=== PATIENT | male | born 1950 | race Caucasian/White ===

== ENCOUNTER 2018-01-27 13:55 | Emergency (ER) | payer OTHER, SELFPAY ==
[2018-01-27 14:06] VITALS: BP 129/85; PULSE 84; RESP 20; TEMP 36.6; O2SAT 96; BMI 27.1
[2018-01-27 14:16] VITALS: PULSE 87; RESP 20; O2SAT 93
[2018-01-27 14:21] VITALS: O2SAT 94
--- NOTE | 2018-01-27 14:21 | RAD_ITS ---
STUDY: X-RAY CHEST REASON FOR EXAM: Male, 67 years old. Dyspnea. Rales. TECHNIQUE: AP and lateral views of the chest. COMPARISON: None. FINDINGS: EKG electrodes are seen. There is evidence of bilateral pleural effusions right worse than left with CHF. Bibasilar atelectasis. RAD/Chest PA and Lateral IMPRESSION: CHF. Bilateral pleural effusions with underlying bibasilar atelectasis. Electronically Signed: Shahid Martniez MD at 15:32 EST Tel [phone], Service support ,
--- NOTE | 2018-01-27 14:21 | EKG12_ITS ---
Test Reason : CP Blood Pressure : / mmHG Vent. Rate : 085 BPM Atrial Rate : 085 BPM P-R Int : 132 ms QRS Dur : 094 ms QT Int : 358 ms P-R-T Axes : 058 -06 147 degrees QTc Int : 426 ms Sinus rhythm with Premature atrial complexes ST & T wave abnormality, consider lateral ischemia Abnormal ECG Confirmed by KATHY WONG, [place] ([id number]), assistant editor EMILEE JURADO ([id number]) on 02/01/2018 2:11:20 PM Referred By: ED Confirmed By:ALEXANDRIA CHAVEZ MD
[2018-01-27 15:37] LABS: Hematocrit 31.4 % (40-54); Hemoglobin 10.1 g/dl (13.0-16.5); Mean Corp Hgb Conc 32.2 g/gl (32-36); Mean Corpuscular Hgb 30.4 pg (27.0-32.0); Mean Corpuscular Volume 94.6 fL (80-94); Mean Platelet Vol. 11.1 fl (6.2-12.0); Platelet Count 316 K/mm3 (150-450); RBC Distribution Width CV 17.4 % (11.6-14.6); RBC Distribution Width SD 56.6 fl (35.1-43.9); Red Blood Count 3.32 M/mm3 (4.6-6.2); White Blood Count 11.3 K/mm3 (4.4-11.0)
[2018-01-27 15:39] LABS: Scan Indicated on CBC? Y/N YES- FLAGS NOTED
[2018-01-27 15:47] LABS: Anion Gap 14 (5-15); BUN 55 mg/dL (7-18); BUN/Creat Ratio 12.3 RATIO (10-20); Calcium,Total 7.7 mg/dL (8.5-10.1); Chloride 97 mmol/L (98-107); Creatinine, Serum 4.46 mg/dL (0.70-1.30); EST Glomerular Filtration Rate 14 mL/min (>60); Est Glom Filt Rate - Afr Amer 17 mL/min (>60); Estimated Creatinine Clearance 17.64 ml/min; Glucose 92 mg/dL (74-106); Potassium 5.1 mmol/L (3.5-5.1); Sodium Level 135 mmol/L (136-145)
[2018-01-27 16:15] VITALS: BP 91/57; PULSE 86; RESP 18; O2SAT 95
--- NOTE | 2018-01-27 16:20 | ED.DCSUM_ITS ---
- ER Visit Summary Date of Service: 01/27/18 Chief Complaint: Passed your shortness of breath, per patient I would like to be in a [facility] closer to my son and grandson, per paramedics bleeding from access site History of Present Illness: The patient is a 67 M who has end-stage coronary disease, end-stage CHF and end-stage renal disease on hemodialysis who presents from the dialysis unit because of bleeding from his access site per paramedics. His past is concerned because of the way his breathing. Based on history and physical this is a chronic problem. He was recently admitted to [facility]. He was found to have coronary artery disease but he is not a candidate for cardiac catheterization. He is mode of transportation his wheelchair and he is dependent on the care of others for everything other than feeding himself. He denies fever, chills night sweats. He denies chest pain palpitations. He denies increased shortness of breath. He denies increased orthopnea. He denies abdominal pain or back pain. Physical Examination: Patient appears much older than age. He has mild respiratory distress, which is chronic. His vital signs are normal. He is not hypoxic on room air. Pupils equal round reactive. Extraocular muscles are intact. TMs are normal. Posterior pharyngeal erythema or exudate. Heart is regular. Lungs are clear to auscultation. He has diminished breath sounds. Abdomen is soft flabby nontender. He is alert he is oriented. Test Results: KG sinus rhythm with PACs and artifact. Chest x-ray reveals poor story volume with normal cardiac silhouette and atelectasis at the bases. White count slightly elevated 11.3 with no shift. H&H 10.1 and 31.4. Creatinine is 4.46. 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 Emergency Department Course and Treatment: Await his dyspnea EKG, chest x-ray and blood work was obtained to rule out cardiac versus pulmonary versus end- stage disease. Treatment Plan: He is at baseline and his labs have not changed from his most recent admission he will be discharged to return to the [facility] Disposition: Transfer port by ambulance to nursing facility Impression: 1. Dyspnea 2. End-stage congestive heart failure 3. End-stage renal disease on hemodialysis 4. End-stage coronary disease not candidate for cardiac catheterization 5. Anemia of chronic illness 6. History of type 2 diabetes 7. History of hypertension 8. History of CVA This note was generated with [employer] dictation software. It may contain incorrect words, spelling, and punctuation that were not noted in review of the chart prior to signing ED Disposition - Plan for ED Patient: Disposition: Home or Assisted Living Chief Complaint: Shortness of Breath Instructions: ED CHF General [facility] [Primary [facility] Provider] - As Needed
[2018-01-27 16:22] LABS: Differential Comment SCANNED
[2018-01-27 17:58] VITALS: BP 117/47; PULSE 89; RESP 20; O2SAT 93
== END 2018-01-27 17:59 | disposition home or self-care (01) ==
PROVIDERS: Emergency Provider Emergency Medicine
DX: R06.00 Dyspnea, unspecified (principal); I13.2 Hypertensive heart and chronic kidney disease with heart failure and with stage 5 chronic kidney disease, or end stage renal disease; N18.6 End stage renal disease; I50.84 End stage heart failure; Z99.2 Dependence on renal dialysis; I25.10 Atherosclerotic heart disease of native coronary artery without angina pectoris; D63.1 Anemia in chronic kidney disease; E11.9 Type 2 diabetes mellitus without complications; E66.9 Obesity, unspecified; Z86.73 Personal history of transient ischemic attack (TIA), and cerebral infarction without residual deficits; Z79.899 Other long term (current) drug therapy
CPT/HCPCS: 71046; 80048; 84484; 85027; 93005; 99285; A4216